=== PATIENT | female | born 1930 | race Caucasian/White ===

== ENCOUNTER 2020-06-03 21:16 | Inpatient (IN) ==
[2020-06-03 21:53] LABS: Basophils % 0.3 %; Eosinophils # 0.1 K/mcL (0.0-0.6); Eosinophils % 1.2 %; Hemoglobin 10.7 g/dL (11.5-15.4); Immature Granulocytes % 0.2 % (0-4); Lymphocytes # 1.6 K/mcL (0.6-4.6); Lymphocytes % 24.5 %; Mean Corpuscular HGB Conc 32.4 g/dL (31.6-35.5); Mean Corpuscular Hemoglobin 31.7 pg (28.0-33.3); Mean Corpuscular Volume 97.6 fL (83.0-100.0); Mean Platelet Volume 9.7 fL (9.4-12.4); Monocytes # 0.6 K/mcL (0.0-1.3); Monocytes % 9.1 %; Neutrophils # 4.2 K/mcL (1.6-8.9); Platelet Count 254 K/mcL (140-400); Red Blood Count 3.38 M/mcL (3.82-4.97); Red Cell Distribution Width 12.5 % (11.5-14.5); Segmented Neutrophils % 64.7 %; White Blood Count 6.5 K/mcL (4.3-11.1)
[2020-06-03 22:03] LABS: Activated Partial Thrombo Time 29.5 Seconds (26.0-36.0)
[2020-06-03 22:04] LABS: INR 1.1; Prothrombin Time 12.5 Seconds (9.4-12.1)
[2020-06-03 22:11] LABS: Troponin I < 0.03 ng/mL (< 0.04)
[2020-06-03 22:12] LABS: Alanine Aminotransferase 11 Units/L (7-52); Albumin 3.9 g/dL (3.5-5.7); Albumin/Globulin Ratio 1.5 (1.1-2.2); Alkaline Phosphatase 59 Units/L (34-104); Aspartate Amino Transferase 16 Units/L (13-39); BUN/Creatinine Ratio 30 (6-26); Bilirubin,Indirect 0.3 mg/dL (0.0-1.0); Bilirubin,Total 0.3 mg/dL (0.3-1.0); Blood Urea Nitrogen 29 mg/dL (8-23); Calcium 8.9 mg/dL (8.6-10.3); Carbon Dioxide 28 mEq/L (23-29); Chloride 105 mEq/L (98-107); Ethanol < 10 mg/dL (Less than 10); Globulin 2.6 g/dL (2.4-3.5); Glucose 113 mg/dL (70-105); Osmolality,Calculated 297 (280-300); Potassium 4.2 mEq/L (3.5-5.1); Sodium 140 mEq/L (136-145); Total Protein 6.5 g/dL (6.4-8.9); eGFR For African Americans > 60 (> 60); eGFR For Non-African Americans 55 (> 60)
[2020-06-03 22:50] LABS: Bilirubin,Urine Negative (Negative); Blood,Urine Negative (Negative); Clarity,Urine Clear (Clear); Color,Urine Yellow (Yellow); Glucose,Urine (UA) Normal (Normal); Ketones,Urine Trace mg/dL (Negative); Leukocyte Esterase,Urine Negative (Negative); Nitrite,Urine Negative (Negative); Protein,Urine 30 mg/dL (Neg-Trace); Specific Gravity,Urine >= 1.030 (1.010-1.025); Urobilinogen,Urine Normal (Normal)
[2020-06-03 23:04] LABS: Mucus,Urine Many per lpf (None-Few)
[2020-06-03 23:05] LABS: Bacteria,Urine Few per hpf (None-Few); Hyaline Casts,Urine Few per lpf (None Seen); RBC,Urine 0-3 per hpf (0-3)
[2020-06-03 23:06] LABS: Renal Epithelial Cells,Urine Few per hpf (None-Few); WBC,Urine 0-3 per hpf (0-3)
[2020-06-03 23:07] LABS: Squamous Epithelial Cell,Urine Few per hpf (None-Few)
[2020-06-04] MEDS ORDERED: Ondansetron ODT 4 MG TAB.RAPDIS SL PRN (00:41)
[2020-06-04] MEDS ORDERED: Naloxone 0.4 MG/ML INJ IVP PRN (00:41)
[2020-06-04] MEDS ORDERED: Acetaminophen 325 MG TABLET PO PRN (00:41)
[2020-06-04] MEDS ORDERED: MOM Conc 10 ML UD.LIQ PO PRN (00:41)
[2020-06-04] MEDS ORDERED: Mag Hydrox/Al Hydrox/Simeth 30 ML UDC PO PRN (00:41)
[2020-06-04] MEDS: Melatonin 3 MG TABLET PO PRN ×2 (01:35→22:59)
[2020-06-04] MEDS ORDERED: cefTRIAXone 2,000 MG in 0.9 % Sodium Chloride Mini Bag 100 ML IVPB SCH (16:00)
[2020-06-04] MEDS: cefTRIAXone 2,000 MG in Water for inj. (sterile) 20 ML IVP SCH (16:44)
[2020-06-04] MEDS ORDERED: amLODIPine 5 MG TABLET PO ONE (22:36)
[2020-06-05] MEDS: *HR* Labetalol 20 MG/4 ML SYRINGE IVP PRN ×2 (03:13→22:25)
[2020-06-05] MEDS ORDERED: lisinopriL 10 MG TABLET PO SCH (09:00)
[2020-06-05] MEDS: cefTRIAXone 2,000 MG in Water for inj. (sterile) 20 ML IVP SCH (16:07)
[2020-06-05] MEDS: Melatonin 3 MG TABLET PO PRN (21:33)
[2020-06-06] MEDS: lisinopriL 10 MG TABLET PO SCH (09:22)
[2020-06-06] MEDS: *HR* LORazepam 2 MG/ML VIAL IVP PRN ×2 (09:23→17:46)
[2020-06-06] MEDS ORDERED: QUEtiapine Fumarate 25 MG TABLET PO ONE (19:47)
[2020-06-06] MEDS: *HR* Labetalol 20 MG/4 ML SYRINGE IVP PRN (19:55)
[2020-06-06] MEDS: Melatonin 3 MG TABLET PO PRN (19:55)
[2020-06-07] MEDS: *HR* Labetalol 20 MG/4 ML SYRINGE IVP PRN ×2 (03:53→08:00)
[2020-06-07] MEDS: lisinopriL 10 MG TABLET PO SCH (08:00)
[2020-06-07] MEDS: *HR* LORazepam 2 MG/ML VIAL IVP PRN (08:01)
[2020-06-07] MEDS ORDERED: amLODIPine 5 MG TABLET PO SCH (09:00)
[2020-06-07 09:24] VITALS: BP 192/75
== END 2020-06-07 15:50 | DRG 884 ==
LOC: INPPIK 21:16 → EMEROOPIK 21:16 → INPPIK 06-04 00:34
PROVIDERS: ADMIT Family Medicine; ATTEND Family Medicine